=== PATIENT | female | born 1970 | race Hispanic/Latino ===

== ENCOUNTER 2019-10-14 15:08 | Inpatient (IN) | payer BC ==
[~2019-10-14] VITALS: Ht 170.2 cm; Wt 101.8 kg
[2019-10-14 17:23] LABS: PLATELET COUNT 156 K/uL (152-353)
[2019-10-14 17:38] LABS: POTASSIUM 3.6 mmol/L (3.6-5.2)
[2019-10-14 18:18] VITALS: BP 129/56; TEMP 99.7; Ht 170.2 cm; Wt 101.8 kg
[2019-10-14] MEDS ORDERED: KP FOLIC ACID1 MG PO (18:40)
[2019-10-14] MEDS ORDERED: OMEPRAZOLE40 MG PO (18:40)
[2019-10-14] MEDS ORDERED: LISI20TA11 PO (18:41)
[2019-10-14] MEDS ORDERED: LEVO0.117 PO (18:42)
[2019-10-14] MEDS ORDERED: TRAZ50TA36 PO (18:43)
[2019-10-14] MEDS ORDERED: MYRBETRIQ50 MG PO (18:44)
[2019-10-14 20:00] VITALS: BP 116/69; TEMP 98.2
[2019-10-15] VITALS: BP 123/68; TEMP 99.4
[2019-10-15 04:00] VITALS: BP 119/73; TEMP 98.1
[2019-10-15 05:22] LABS: PLATELET COUNT 124 K/uL (152-353)
[2019-10-15 05:43] LABS: POTASSIUM 3.2 mmol/L (3.6-5.2)
[2019-10-15 08:00] VITALS: BP 108/66; TEMP 98.7
[2019-10-15 12:00] VITALS: BP 113/65; TEMP 98.7
[2019-10-15 16:00] VITALS: BP 114/79; TEMP 98.5
== END 2019-10-15 17:18 | disposition home or self-care (01) | DRG 392 ==
LOC: MED/SURG 15:08
PROVIDERS: ADMIT Internal Medicine Endocrinology, Diabetes & Metabolism
DX: K52.89 Other specified noninfective gastroenteritis and colitis (principal); E03.8 Other specified hypothyroidism; I10 Essential (primary) hypertension; K21.9 Gastro-esophageal reflux disease without esophagitis; E86.0 Dehydration; R00.0 Tachycardia, unspecified
CPT/HCPCS: 36415; 80053; 81000; 83690; 85027; 87040; 87502

== ENCOUNTER 2022-09-19 07:44 | Outpatient (CLI) | payer OTHER ==
[~2022-09-19 07:44] MED LIST: KP FOLIC ACID1 MG PO; LEVO0.117 PO; LISI20TA11 PO; MYRBETRIQ50 MG PO; OMEPRAZOLE40 MG PO; TRAZ50TA36 PO
== END 2022-09-19 19:21 | disposition home or self-care (01) ==
LOC: CT 07:44
PROVIDERS: ATTEND Physician Assistant Medical
DX: Z13.6 Encounter for screening for cardiovascular disorders (principal)